=== PATIENT | male | born 1980 | race American Indian/Alaskan Native ===

== ENCOUNTER 2016-03-27 14:13 | Emergency (ER) | payer OTHER ==
[2016-03-27 15:13] VITALS: BP 154/107
--- NOTE | 2016-03-27 18:01 | Emergency Department Report ---
Abscess Boil HPI - HPI Chief Complaint: Skin/Abscess/Foreign Body Stated Complaint: RT UNDERARM SORE Time Seen by Provider: 03/27/16 17:38 Duration: 2 Days Location: Upper Extremity (R axilla) History: Yes Pain, Yes Previous History, No Fever, No Purulent Drainage, No Numbness, No Foreign Body, No Insect Bite HPI: Pt reports R axillary abscess x 2 days. Home Medications: Previous Rx's Medication Instructions Recorded Last Taken Type Ibuprofen [Motrin] 800 mg PO Q8HR PRN #21 tablet 03/27/16 Unknown Rx Sulfamethoxazole/Trimethoprim 1 each PO BID #20 tablet 03/27/16 Unknown Rx [Bactrim DS TAB] Allergies/Adverse Reactions: Allergies Allergy/AdvReac Type Severity Reaction Status Date / Time No Known Allergies Allergy Unverified 03/27/16 15:12 ED Review of Systems ROS: Stated complaint: RT UNDERARM SORE Other details as noted in HPI Comment: All other systems reviewed and negative Constitutional: denies: chills, fever Eyes: denies: eye pain, eye discharge, vision change ENT: denies: ear pain, throat pain Respiratory: denies: cough, shortness of breath, wheezing Cardiovascular: denies: chest pain, palpitations Endocrine: no symptoms reported Gastrointestinal: denies: abdominal pain, nausea, diarrhea Genitourinary: denies: urgency, dysuria Musculoskeletal: denies: back pain, joint swelling, arthralgia Skin: denies: rash, lesions Neurological: denies: headache, weakness, paresthesias Psychiatric: denies: anxiety, depression Hematological/Lymphatic: denies: easy bleeding, easy bruising ED Past Medical Hx - Past Medical History Previous Medical History?: No - Surgical History Past Surgical History?: No - Social History Smoking Status: Former Smoker Substance Use Type: Alcohol - Medications Home Medications: Home Medications Medication Instructions Recorded Confirmed Last Taken Type Ibuprofen [Motrin] 800 mg PO Q8HR PRN #21 tablet 03/27/16 Unknown Rx Sulfamethoxazole/Trimethoprim 1 each PO BID #20 tablet 03/27/16 Unknown Rx [Bactrim DS TAB] ED Abscess Boil Physical Exam - Exam General: Vital signs noted. No distress. Alert and acting appropriately. Size: 5 cm Exam: Yes Tenderness, Yes Fluctuance, Yes Surrounding Cellulites/Erythema, Yes Normal Neurologic Exam, Yes Normal Circulation, No Lymphangitis, No Crepitation , No Heart Murmur I & D Note - I & D Note I & D Note: Patient was prepped in normal sterile fashion. 3 cc of lidocaine 1% injected into R axillary abscess region. A small incision was made with an 11 blade. A copious amount of purulent material was drained. Small amount of 1/4" packing was inserted. Area was dressed. Pt tolerated well. ED Course Vital Signs 03/27/16 15:06 Temperature 98.5 F Pulse Rate 97 H Respiratory 18 Rate Blood Pressure 154/107 O2 Sat by Pulse 100 Oximetry - Reevaluation(s) Reevaluation #1: 03/27/16 17:59 NAD, stable for d/c. Critical care attestation.: If time is entered above; I have spent that time in minutes in the direct care of this critically ill patient, excluding procedure time. ED Medical Decision Making - Medical Decision Making Abscess drained, 2 day follow up discussed. Will give abx due to surrounding erythema/mild cellulitis. - Differential Diagnosis abscess, cellulitis ED Disposition Clinical Impression: Axillary abscess Disposition: DISCHARGED TO HOME OR SELFCARE Is pt being admited?: No Condition: Good Instructions: Abscess (ED), Abscess Incision and Drainage (ED) Prescriptions: Ibuprofen [Motrin] 800 mg PO Q8HR PRN #21 tablet PRN Reason: Pain Sulfamethoxazole/Trimethoprim [Bactrim DS TAB] 1 each PO BID #20 tablet Referrals: MARTINEZ KENYON MD [Staff Physician] - 2-3 Days Time of Disposition: 18:00
== END 2016-03-27 18:11 | disposition home or self-care (01) ==
LOC: ED 14:13
DX: L02.411 Cutaneous abscess of right axilla (principal); Z87.891 Personal history of nicotine dependence

== ENCOUNTER 2016-06-19 11:16 | Emergency (ER) | payer OTHER ==
--- NOTE | 2016-06-19 11:59 | Emergency Department Report ---
Entered by RY UPTON, acting as scribe for ROJELIO RIVERA NP. Chief Complaint: High BP Stated Complaint: HBP Time Seen by Provider: 06/19/16 11:50 - HPI History of Present Illness: 36 y/o male c/o high bp. Checked at home, which was 168/107 Reports SOB, wheezing did not fu w pulm for allison testing Denies headache, dizziness, nausea, and vomiting, cp or sob at present Does millwork PSHx: none NKDA Denies diabetes was given bp meds 1 y ago and took them but never followed up needs meds and pcp eval end organ and pcp referral - ROS Review of Systems: see above - Exam Vital Signs: Vital Signs 06/19/16 11:39 Temperature 98.6 F Pulse Rate 102 H Respiratory 17 Rate Blood Pressure 143/106 O2 Sat by Pulse 100 Oximetry Physical Exam: see above MSE screening note: Focused history and physical exam performed. Due to findings the following was ordered: ED Disposition for MSE Condition: Stable This documentation as recorded by the scribe,RY UPTON,accurately reflects the service I personally performed and the decisions made by ,ROJELIO RUBIN NP.
--- NOTE | 2016-06-19 12:16 | XRay Report ---
Chest 2 views: History: Chest pain. Findings: Heart is normal in size. Trachea is midline. Bilateral hilar circumscribed masses. Perihilar ill-defined density left chest and large circumscribed perihilar densities right chest. Normal CP angles. Impression: Probably bilateral hilar adenopathy. Bilateral lung mass or pneumonia. CT scan recommended for further evaluation.
[2016-06-19 12:27] LABS: Hematocrit 50.5 % (35.5-45.6); Hemoglobin 17.8 gm/dl (11.8-15.2); Mean Corpuscular HGB Conc 35 % (32-34); Mean Corpuscular Hemoglobin 30 pg (28-32); Mean Corpuscular Volume 84 fl (84-94); Platelet Count 244 K/mm3 (140-440); Red Cell Distribution Width 12.2 % (13.2-15.2); White Blood Count 4.8 K/mm3 (4.5-11.0)
[2016-06-19 13:01] LABS: Alanine Aminotransferase 42 units/L (7-56); Albumin 4.4 g/dL (3.9-5); Albumin/Globulin Ratio 1.3 %; Alkaline Phosphatase 41 units/L (35-129); Anion Gap 19 mmol/L; Blood Urea Nitrogen 9 mg/dL (9-20); Calcium 9.3 mg/dL (8.4-10.2); Carbon Dioxide 23 mmol/L (22-30); Chloride 101.7 mmol/L (98-107); Glucose 102 mg/dL (75-100); Potassium 3.9 mmol/L (3.6-5.0); Sodium 140 mmol/L (137-145); Total Protein 7.7 g/dL (6.3-8.2)
[2016-06-19 13:14] LABS: Blastocytes % (Manual) 0 %
[2016-06-19 13:15] LABS: Diff Status Complete; Platelet Estimate Cons; RBC Morphology Normal
[2016-06-19 22:43] VITALS: BP 150/99
== END 2016-06-19 23:20 | disposition left against medical advice (07) ==
LOC: ED 11:16
DX: R03.0 Elevated blood-pressure reading, without diagnosis of hypertension (principal); R06.02 Shortness of breath; R06.2 Wheezing; Z53.21 Procedure and treatment not carried out due to patient leaving prior to being seen by health care provider
CPT/HCPCS: 36415; 71020; 80053; 85007; 85025